=== PATIENT | female | born 1970 | race Caucasian/White ===

== ENCOUNTER 2025-05-26 10:09 | Day surgery (SDC) | payer BC ==
[~2025-05-26 10:09] MED LIST: Lactated Ringers 1,000 ML IV SCH
[2025-05-26] MEDS ORDERED: Ketamine 200 MG/20 ML MDV ONE (10:32)
[2025-05-26] MEDS ORDERED: Propofol 200 MG/20 ML SDV ONE (10:32)
[2025-05-26] MEDS ORDERED: Flumazenil 0.1 MG/ML 5 ML MDV ONE (10:32)
[2025-05-26] MEDS ORDERED: fentaNYL 50 MCG/ML SDV ONE (10:32)
[2025-05-26] MEDS ORDERED: Midazolam 1 MG/ML 2 ML SDV ONE (10:32)
== END 2025-05-26 11:55 | disposition home or self-care (01) ==
LOC: CC.SDS 10:09
PROVIDERS: ATTEND Family Medicine
DX: Z12.11 Encounter for screening for malignant neoplasm of colon (principal); K62.1 Rectal polyp; K62.89 Other specified diseases of anus and rectum; E03.9 Hypothyroidism, unspecified; Z79.890 Hormone replacement therapy
CPT/HCPCS: J2250; J2704; J3010; J3490